=== PATIENT | female | born 1975 | race Native Hawaiian/Other Pacific Islander ===

== ENCOUNTER 2016-03-07 16:05 | Emergency (ER) | payer OTHER ==
--- NOTE | 2016-03-07 16:56 | ED ---
Female Urogenital HPI - General Chief complaint: Vaginal Bleeding Stated complaint: Vaginal Bleeding (11wks preg) Time Seen by Provider: 03/07/16 16:25 Source: patient, family, RN notes reviewed Mode of arrival: wheelchair Limitations: no limitations - History of Present Illness Initial comments: Patient is a 41-year-old female presents to the emergency room for evaluation of vaginal bleeding. Patient states that she is about 11 weeks . Patient states that she is following up with an LAMINATION MACHINE OPERATOR in [place]. Patient states that she had an ultrasound today and everything was normal. Patient states earlier this afternoon she decided to have sexual intercourse with her . Patient states 20 minutes before arrival she passed a large clot and has been bleeding since. Patient states she's developed some mild bilateral lower abdominal cramping. Patient states she is worried that she's having a miscarriage. - Related Data Home Medications Medication Instructions Recorded Confirmed Calcium Carbonate [Tums] 500 mg PO BID PRN 02/07/16 03/07/16 Cholecalciferol [Vitamin D3] 1,000 unit PO DAILY 02/07/16 03/07/16 Ferrous Sulfate [Feosol] 325 mg PO DAILY 02/07/16 03/07/16 Flunisolide [Aerospan] 1 puff INHALATION RT-DAILY 02/07/16 03/07/16 Loratadine [Claritin] 10 mg PO HS 02/07/16 03/07/16 Montelukast Sodium [Singulair] 10 mg PO HS 02/07/16 03/07/16 Pnv with Ca,No.72/Iron/FA 1 tab PO DAILY 02/07/16 03/07/16 [ Plus Tablet] Lansoprazole [Prevacid] 30 mg PO DAILY 03/07/16 03/07/16 Allergies Allergy/AdvReac Type Severity Reaction Status Date / Time No Known Allergies Allergy Verified 03/07/16 16:35 Review of Systems ROS Statement: Those systems with pertinent positive or pertinent negative responses have been documented in the HPI. ROS Other: All systems not noted in ROS Statement are negative. Past Medical History Past Medical History: GERD/Reflux Additional Past Medical History / Comment(s): vitamin d deficiency, abcess tooth History of Any Multi-Drug Resistant Organisms: None Reported Past Surgical History: Section Additional Past Surgical History / Comment(s): D&C Past Psychological History: Anxiety, Depression Smoking Status: Former smoker Past Alcohol Use History: Occasional Past Drug Use History: None Reported General Exam - General Exam Comments Initial Comments: Sitting in exam room in no acute distress. Limitations: no limitations General appearance: alert, in no apparent distress Head exam: Present: atraumatic, normocephalic, normal inspection Eye exam: Present: normal appearance ENT exam: Present: normal exam Neck exam: Present: normal inspection Respiratory exam: Present: normal lung sounds bilaterally. Absent: respiratory distress Cardiovascular Exam: Present: regular rate, normal rhythm, normal heart sounds GI/Abdominal exam: Present: soft, normal bowel sounds. Absent: distended, tenderness, guarding, rebound, rigid External exam: Present: normal external exam Speculum exam: Present: vaginal bleeding (Mild amount of bright red blood from cervix. No clotting noted.) By manual exam: Present: normal by manual exam Expanded Speculum exam: Present: cervical OS closed Extremities exam: Present: normal inspection Back exam: Present: normal inspection Neurological exam: Present: alert, oriented X3, CN II-XII intact, normal gait Psychiatric exam: Present: normal affect, normal mood Skin exam: Present: warm, dry, intact, normal color. Absent: rash Course Vital Signs 03/07/16 03/07/16 16:07 19:07 Temperature 98.2 F 98.5 F Pulse Rate 89 73 Respiratory 20 16 Rate Blood Pressure 122/67 135/71 O2 Sat by Pulse 97 98 Oximetry Medical Decision Making - Medical Decision Making Patient is a 41-year-old female since emergency room for evaluation of vaginal bleeding. Patient states is about 11 weeks . Patient's blood type is O negative. Patient was given RhoGAM. Ultrasound showed an IUP with normal heart rate and two subchorionic bleeds. Findings discussed with patient. Advised patient to follow-up with her LAMINATION MACHINE OPERATOR in 1-2 days for reevaluation. Advised patient to refrain from sexual intercourse. Patient states she understands everything that was discussed with her. Return parameters discussed. Case discussed with Dr. Paz. - Lab Data Result diagrams: 03/07/16 16:55 Lab Results 03/07/16 03/07/16 03/07/16 Range/Units 16:55 16:55 16:55 WBC 8.4 (3.8-10.6) k/uL RBC 4.20 (3.80-5.40) m/uL Hgb 11.8 (11.4-16.0) gm/dL Hct 36.5 (34.0-46.0) % MCV 86.9 (80.0-100.0) fL MCH 28.0 (25.0-35.0) pg MCHC 32.3 (31.0-37.0) g/dL RDW 13.6 (11.5-15.5) % Plt Count 247 (150-450) k/uL Neutrophils % 71 % Lymphocytes % 20 % Monocytes % 7 % Eosinophils % 1 % Basophils % 0 % Neutrophils # 5.9 (1.3-7.7) k/uL Lymphocytes # 1.7 (1.0-4.8) k/uL Monocytes # 0.6 (0-1.0) k/uL Eosinophils # 0.1 (0-0.7) k/uL Basophils # 0.0 (0-0.2) k/uL HCG, Quant 86729.4 mIU/mL Urine Color Urine Appearance (Clear) Urine pH (5.0-8.0) Ur Specific [place] (1.001-1.035) Urine Protein (Negative) Urine Glucose (UA) (Negative) Urine Ketones (Negative) Urine Blood (Negative) Urine Nitrate (Negative) Urine Bilirubin (Negative) Urine Urobilinogen (<2.0) mg/dL Ur Leukocyte Esterase (Negative) Urine RBC (0-5) /hpf Urine WBC (0-5) /hpf Ur Squamous Epith Cells (0-4) /hpf Urine Mucus (None) /hpf Urine Yeast (Budding) (None) /hpf Blood Type O Negative Blood Type Recheck No Antibody Screen 03/07/16 03/07/16 Range/Units 16:55 18:57 WBC (3.8-10.6) k/uL RBC (3.80-5.40) m/uL Hgb (11.4-16.0) gm/dL Hct (34.0-46.0) % MCV (80.0-100.0) fL MCH (25.0-35.0) pg MCHC (31.0-37.0) g/dL RDW (11.5-15.5) % Plt Count (150-450) k/uL Neutrophils % % Lymphocytes % % Monocytes % % Eosinophils % % Basophils % % Neutrophils # (1.3-7.7) k/uL Lymphocytes # (1.0-4.8) k/uL Monocytes # (0-1.0) k/uL Eosinophils # (0-0.7) k/uL Basophils # (0-0.2) k/uL HCG, Quant mIU/mL Urine Color Yellow Urine Appearance Cloudy H (Clear) Urine pH 7.5 (5.0-8.0) Ur Specific [place] 1.010 (1.001-1.035) Urine Protein Trace H (Negative) Urine Glucose (UA) Negative (Negative) Urine Ketones Negative (Negative) Urine Blood Large H (Negative) Urine Nitrate Negative (Negative) Urine Bilirubin Negative (Negative) Urine Urobilinogen <2.0 (<2.0) mg/dL Ur Leukocyte Esterase Negative (Negative) Urine RBC >182 H (0-5) /hpf Urine WBC <1 (0-5) /hpf Ur Squamous Epith Cells 1 (0-4) /hpf Urine Mucus Rare H (None) /hpf Urine Yeast (Budding) Few H (None) /hpf Blood Type Blood Type Recheck Antibody Screen NEGATIVE - Radiology Data Radiology results: report reviewed, image reviewed Disposition Clinical Impression: Threatened , Subchorionic bleed Disposition: HOME SELF-CARE Condition: Good Instructions: Threatened Miscarriage (ED), Subchorionic Hemorrhage (ED) Additional Instructions: Refrain from sexual intercourse or heavy lifting for the next 7-10 days. Please follow-up with LAMINATION MACHINE OPERATOR in 24-48 hours for reevaluation. If any new symptom arises, symptoms worsen or fever develops, return to ER as soon as possible. Referrals: López Givens DO [Primary Care Provider] - 1-2 days Time of Disposition: 18:46
[2016-03-07 17:16] LABS: Basophils % (A) 0 %; CH 28.7; CHCM 33.2; Eosinophils # (A) 0.1 k/uL (0-0.7); Eosinophils % (A) 1 %; HCT 36.5 % (34.0-46.0); HDW 2.31; HGB 11.8 gm/dL (11.4-16.0); Luc # (Auto) 0.16; Luc % (Auto) 2; Lymphocytes # (A) 1.7 k/uL (1.0-4.8); Lymphocytes % (A) 20 %; MCHC 32.3 g/dL (31.0-37.0); MCV 86.9 fL (80.0-100.0); Mean Platelet Volume 7.7; Monocytes # (A) 0.6 k/uL (0-1.0); Monocytes % (A) 7 %; Neutrophils # (A) 5.9 k/uL (1.3-7.7); Neutrophils % (A) 71 %; RDW 13.6 % (11.5-15.5); WBC 8.4 k/uL (3.8-10.6); WBC (Perox) 7.98
[2016-03-07] MEDS ORDERED: Rhogam IMMUNE GLOBULIN 1,500 UNIT/1 ML IM ONE (17:48)
--- NOTE | 2016-03-07 17:53 | US ---
EXAMINATION TYPE: US OB <= 14 wk fetus DATE OF EXAM: 03/07/2016 5:39 PM COMPARISON: NONE CLINICAL HISTORY: bleeding, had US today at doctors office. EXAM PERFORMED: Transabdominal (TA) EXAM MEASUREMENTS: GESTATIONAL AGE / DATING Dates by LMP: (11 weeks/1 days) EDC: 09/25/2016 Dates by Current Scan: (11 weeks/0 days) EDC: 09/26/2016 MATERNAL ANATOMY Uterus: 15.0 x 8.6 x 8.0 cm Right Ovary: 2.6 x 1.7 x 1.6 cm Left Ovary: 5.9 x 2.5 x 2.6 cm Post CDS / Adnexa: no free fluid Presence of free fluid: no Presence of corpus luteal cyst: no Presence of subchorionic bleed: yes. Two bleeds seen. 1-2.7 x 1.0 x1.6 cm. 2- fundal region, 1.6 x 1.6 x 1.5 cm GESTATION / SURVEY CRL: 4.0 cm (11 weeks/0 days) MSD: seen Yolk Sac (normal less than 6mm): not seen Heart Rate: 172 bpm Rhythm: Normal IUP: Viable IUP Date of LMP: 12/20/2015 Beta HcG (if available): not available TECHNOLOGIST IMPRESSION: Live single IUP measuring 11 weeks 0 days. Two subchorionic bleeds seen IMPRESSION: The ultrasound gestational age is 11 weeks. There are 2 small subchorionic hemorrhage is noted. Amniotic fluid is adequate.
[2016-03-07 19:07] VITALS: BP 135/71; PULSE 73; RESP 16; TEMP 98.5
[2016-03-07 19:48] LABS: Appearance,Urine Cloudy (Clear); Bilirubin,Urine Negative (Negative); Glucose,Urine (UA) Negative (Negative); Ketones,Urine Negative (Negative); Leukocyte Esterase,Urine Negative (Negative); Mucus,Urine Rare /hpf; Nitrite,Urine Negative (Negative); PH, Urine 7.5 (5.0-8.0); Particle Count 8774; Protein,Urine Trace (Negative); RBC,Urine >182 /hpf (0-5); Squamous Epithelial Cell,Urine 1 /hpf (0-4); UA Billing (MACRO vs. MICRO) MICRO; Urobilinogen,Urine <2.0 mg/dL (<2.0); WBC,Urine <1 /hpf (0-5)
== END 2016-03-07 19:09 | disposition home or self-care (01) ==
LOC: EC 16:05
DX: O20.0 Threatened abortion (principal); O46.8X1 Other antepartum hemorrhage, first trimester; O99.331 Smoking (tobacco) complicating pregnancy, first trimester; Z3A.11 11 weeks gestation of pregnancy; K21.9 Gastro-esophageal reflux disease without esophagitis; E55.9 Vitamin D deficiency, unspecified; Z79.51 Long term (current) use of inhaled steroids; Z79.899 Other long term (current) drug therapy; Z87.891 Personal history of nicotine dependence
CPT/HCPCS: 99284; 96372; 36415; 86900; 86901; 85025; 86850; 81001; 84702; 76801; J2791

== ENCOUNTER 2017-05-15 08:20 | Day surgery (SDC) | payer OTHER ==
[2017-05-11 08:55] VITALS: BMI 35.6
[~2017-05-15 08:20] MED LIST: LACTATED RINGERS 1,000 ML IV SCH; LIDOCAINE 1% 20 ML VIAL (10MG/ML) FOR IV START INTRADERMA PRN
[2017-05-15 09:14] VITALS: TEMP 98.2
[2017-05-15] MEDS ORDERED: LACTATED RINGERS 1,000 ML IV ONE (09:24)
[2017-05-15] MEDS ORDERED: LIDOCAINE 1% INJ 10MG/ML (20 ML MDV) ONE (09:25)
[2017-05-15] MEDS ORDERED: fentaNYL (PF) 50 MCG/ML 2 ML AMP ONE (09:25)
[2017-05-15] MEDS ORDERED: PROPOFOL 10 MG/ML 20 ML VIAL IV ONE (09:25)
[2017-05-15] MEDS ORDERED: ALBUTEROL INHALER 60 PUFF/8 GM INHALER INHALATION ONE (09:25)
[2017-05-15 09:54] VITALS: RESP 16
--- NOTE | 2017-05-15 09:59 | P.PCN ---
Date of Procedure: 05/15/17 Procedure(s) Performed: Procedure: Esophagogastroduodenoscopy and biopsy. Preoperative diagnosis: Gastroesophageal reflux disease. Postoperative diagnosis: 1. Small sliding hiatal hernia with no obvious esophagitis or complicated reflux disease. 2. Mild antral gastritis with multiple gastric body polyps. 3. Multiple biopsies obtained from the duodenum, antrum, gastric body polyps and esophagus. Preparation sedation: Was provided by anesthesia. Brief clinical history: The patient is a 42-year-old female with history of gastroesophageal reflux disease/laryngeal pharyngeal reflux. The patient has done well in the past on omeprazole. She was seen in the office in the past for reflux symptoms including globus sensation and cough as well as sinus issues. This evaluation is to assess for esophagitis and rule out complicated reflux disease or other pathology. Procedure: With the patient on her left lateral decubitus position and after informed consent and adequate sedation, I passed the Olympus-GIF 160 video upper endoscope through the cricopharyngeus down the esophagus GE junction was around 36 cm from the incisors and there was a small sliding hiatal hernia but no obvious esophagitis or complicated reflux disease. The endoscope was then passed into the stomach which was insufflated with air and inspected in detail including the retroflex view in the cardia. There was some mottling and erythema in the antrum but no ulcers or erosions. 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 No pyloric channel ulcers. Duodenal bulb, post bulbar area and descending duodenum appeared within normal limits with no ulcers or erosions. I obtained multiple biopsies from the duodenum, antrum and esophagus then the endoscope was withdrawn. The patient tolerated the procedure well. Plan: The patient was reassured. Will await pathology results. The patient will be evaluated by ENT as well as by pulmonary for the symptoms and for asthma and we will make additional recommendations based on her course and biopsy results. Meanwhile she is to continue antireflux diet and measures and to continue PPI therapy. She will follow-up with you as planned.
[2017-05-15] MEDS ORDERED: ALBUTEROL NEBULIZED 2.5 MG/3 ML INHALATION STA (10:11)
[2017-05-15 10:14] VITALS: BP 112/67
[2017-05-15 10:28] VITALS: PULSE 76
== END 2017-05-15 10:52 | disposition home or self-care (01) ==
LOC: ORWHC2ENDO 08:20
DX: K29.50 Unspecified chronic gastritis without bleeding (principal); K31.7 Polyp of stomach and duodenum; K21.0 Gastro-esophageal reflux disease with esophagitis; K44.9 Diaphragmatic hernia without obstruction or gangrene; J45.909 Unspecified asthma, uncomplicated; F17.200 Nicotine dependence, unspecified, uncomplicated; F41.9 Anxiety disorder, unspecified; F32.9 Major depressive disorder, single episode, unspecified; Z79.51 Long term (current) use of inhaled steroids; Z79.899 Other long term (current) drug therapy
CPT/HCPCS: 94640; 81025; 88305; 43239; J2001; J3010; J2704